=== PATIENT | female | born 1980 | race Caucasian/White ===

== ENCOUNTER 2019-01-02 00:59 | Emergency (ER) | payer SELFPAY ==
[~2019-01-02] VITALS: Ht 152.4 cm; Wt 44.0 kg
--- NOTE | 2019-01-02 01:27 | NUR ---
RN to bedside and patient has obvious swelling on right lower jaw. at bedside answering many questions. Patient looks poorly kept with a strong body odor. Patient complains of lower leg pain. Patient recalls serious medical history including lupus, seizures and a clotting disorder for which she takes no medications for. Patient attached to blood pressure cuff and pulsatile oxygenation sensor. Both readings are wnl. Patient change into gown, provided with warm blankets and lights dimmed. Resting declining further needs, awaiting assessment and orders by physician.
[2019-01-02] MEDS ORDERED: CLINDAMYCIN 300 MG CAPSULE ONE (01:49)
[2019-01-02] MEDS ORDERED: KETOROLAC 30 MG/1 ML ONE (01:49)
[2019-01-02] MEDS ORDERED: CLINDAMYCIN 300 MG CAPSULE PO ONE (02:00)
[2019-01-02] MEDS ORDERED: KETOROLAC 30 MG/1 ML IM ONE (02:00)
[2019-01-02 03:58] VITALS: BP 121/72
== END 2019-01-02 04:00 | disposition home or self-care (01) ==
LOC: ED 03:45
DX: M25.561 Pain in right knee (principal); K08.89 Other specified disorders of teeth and supporting structures; M79.661 Pain in right lower leg; F32.9 Major depressive disorder, single episode, unspecified; F17.200 Nicotine dependence, unspecified, uncomplicated; Z90.49 Acquired absence of other specified parts of digestive tract
CPT/HCPCS: 93971; 96372; 99284; J1885